=== PATIENT | female | born 1985 | race Caucasian/White ===

== ENCOUNTER → 2016-05-17 | Outpatient (REF) | payer OTHER ==
[~2016-05-17] MED LIST: OSEL75CA PO; TYLE325T5 PO; ZOFR4TAB3 PO
== END ==
LOC: M SFHCLERA 11:55
PROVIDERS: ATTEND Physician Assistant
DX: R50.9 Fever, unspecified (principal)

== ENCOUNTER 2016-05-19 17:58 | Emergency (ER) | payer OTHER ==
[~2016-05-19] VITALS: Ht 152.4 cm; Wt 63.5 kg
[2016-05-19] MEDS ORDERED: OSEL75CA PO (18:06)
[2016-05-19] MEDS ORDERED: TYLE325T5 PO (18:06)
[2016-05-19] MEDS: ONDANSETRON 4MG/2ML VIAL (J2405) IV ONE (19:39)
[2016-05-19] MEDS: NS 1,000 ML IV ONE (19:39)
[2016-05-19] MEDS: KETOROLAC 30 MG/ML VIAL (J1885) IV ONE (19:40)
[2016-05-19 20:00] LABS: BASO % 0.5 % (0.0-1.0); EOS % 0.3 % (0.0-3.0); LARGE UNSTAINED CELL # 0.1 K/mm3 (0.0-0.4); LYMPH # 1.2 K/mm3 (1.5-4.5); LYMPH % 24.6 % (24.0-44.0); MEAN CORPUSCULAR HEMOGLOBIN 31.2 pg (27.0-33.0); MEAN CORPUSCULAR HGB CONC 34.8 g/dl (32.0-36.5); MEAN CORPUSCULAR VOLUME 89.6 fl (80.0-96.0); MONO # 0.3 K/mm3 (0.0-0.8); MONO % 6.5 % (0.0-5.0); NEUTROPHILS # 3.4 K/mm3 (1.8-7.7); NEUTROPHILS % 66.2 % (36.0-66.0); PLATELET COUNT, AUTOMATED 216 k/mm3 (150-450); RED CELL DISTRIBUTION WIDTH 11.8 % (11.5-14.5); WHITE BLOOD COUNT 5.1 K/mm3 (4.0-10.0)
[2016-05-19 20:07] LABS: CONTROL LINE HCG INT CTR LINE PRESENT
[2016-05-19 20:47] LABS: ANION GAP 11 MEQ/L (8-16); BLOOD UREA NITROGEN 5 MG/DL (7-18); CARBON DIOXIDE LEVEL 25 MEQ/L (21-32); CHLORIDE LEVEL 102 MEQ/L (98-107); CREATININE FOR GFR 0.73 MG/DL (0.55-1.02); GLOMERULAR FILTRATION RATE > 60.0 (>60); GLUCOSE, FASTING 87 MG/DL (70-105); POTASSIUM SERUM 3.7 MEQ/L (3.5-5.1); SODIUM LEVEL 138 MEQ/L (136-145)
[2016-05-19] MEDS ORDERED: ZOFR4TAB3 PO (21:27)
[2016-05-19 21:58] VITALS: BP 129/82
== END 2016-05-19 21:59 | disposition home or self-care (01) ==
LOC: M ED 20:16
DX: B34.9 Viral infection, unspecified (principal); F17.210 Nicotine dependence, cigarettes, uncomplicated
CPT/HCPCS: 80048; 84443; 84703; 85025; 96361; 96374; 96375; 99284; J1885; J2405

== ENCOUNTER 2016-11-06 11:18 | Day surgery (SDC) | payer OTHER ==
[~2016-11-06] VITALS: Ht 152.4 cm; Wt 62.6 kg
[~2016-11-06 11:18] MED LIST changes: +FLUTISP; +LR 1,000 ML IV ONE; +PROV2.5T PO
[2016-11-06 11:55] LABS: CONTROL LINE UCG INT CTR LINE PRESENT
[2016-11-06] MEDS ORDERED: MIDAZOLAM INJ 2 MG/2 ML VIAL (J2250) As Ordered ONE (12:58)
[2016-11-06] MEDS ORDERED: fentaNYL 100 MCG/2 ML INJECTION (J3010) As Ordered ONE ×2 (12:58→13:59)
[2016-11-06] MEDS ORDERED: LIDOCAINE W/EPINEPHRINE 1% 20ML VIAL As Ordered ONE (13:06)
[2016-11-06] MEDS ORDERED: OXYMETAZOLINE NASAL SPRAY (AFRIN) As Ordered ONE (13:06)
[2016-11-06] MEDS ORDERED: PROPOFOL 200 MG/20 ML VIAL As Ordered ONE (13:59)
[2016-11-06] MEDS ORDERED: ROCURONIUM BROMIDE 50 MG/5 ML VIAL/SYRINGE As Ordered ONE (13:59)
[2016-11-06] MEDS ORDERED: LIDOCAINE 2% INJ 100 MG/5 ML SDV (FOR ANES.) As Ordered ONE (13:59)
[2016-11-06] MEDS ORDERED: SUCCINYLCHOLINE 100 MG/5 ML SYRINGE (J0330) As Ordered ONE (13:59)
[2016-11-06] MEDS ORDERED: ONDANSETRON 4MG/2ML VIAL (J2405) As Ordered ONE (14:00)
[2016-11-06] MEDS ORDERED: dexameTHASONE 4 MG/ML 1ML VIAL (J1100) As Ordered ONE (14:00)
[2016-11-06] MEDS ORDERED: ONDANSETRON 4 MG TAB (S0181) PO PRN (14:45)
[2016-11-06] MEDS ORDERED: LR 1,000 ML IV SCH (14:45)
[2016-11-06] MEDS ORDERED: fentaNYL 100 MCG/2 ML INJECTION (J3010) IV PRN (14:45)
[2016-11-06] MEDS ORDERED: ONDANSETRON 4MG/2ML VIAL (J2405) IV PRN (14:45)
[2016-11-06] MEDS ORDERED: PERCOCET 5MG/325MG TAB PO PRN (14:45)
[2016-11-06 15:40] VITALS: BP 125/73
--- NOTE | 2016-11-07 12:54 | RO ---
DATE OF PROCEDURE: 11/06/2016 PREOPERATIVE DIAGNOSIS: Deviated septum, chronic rhinitis. POSTOPERATIVE DIAGNOSIS: Deviated septum, chronic rhinitis. PROCEDURE: 1. Septoplasty. 2. Partial reduction inferior turbinates. SURGEON: Anthony Benitez MD PRICING INTERN: ANESTHESIA: General endotracheal. INDICATIONS: A 31-year-old with a long history of nasal obstruction. PROCEDURE: Satisfactory general endotracheal anesthesia was administered, pharyngeal pack placed. The nose was prepared for surgery by placing cotton-soaked pledgets with Afrin solution to nasal cavity bilaterally. 1% Xylocaine with 1:100,000 epinephrine was used to inject into the nasal septum and inferior turbinates. A [place] incision was made on the left side of the nose. A mucoperichondrial flap and envelope was created on the left side of the nasal septum and carried down to the junction of the bony and cartilaginous septum. This was then with an elevator, and an envelope was then created on the right side of the septum. A Deirdre scissors was used to make a cut high in the perpendicular plate in the midportion of the vomer, and a central segment of the bony septum was resected. Next, with the round knife on the [place] elevator, a strip of cartilage was resected from the floor of the nose, mobilizing the quadrilateral cartilage and creating a swinging door. Then, a central segment of cartilaginous septum was resected, preserving a 1 cm dorsal and caudal strut. Double-action rongeur was used to take down deflected portions of the perpendicular plate, as well. Finally, the maxillary crest spur was taken down after elevating mucoperiosteum off both sides of it with a chisel. A segment of the resected cartilage was morselized and placed back into the septal envelope. The incision was closed using an interrupted #5-0 chromic suture. Then, a #4-0 plain suture was placed in a [id number] fashion through the two leaves of mucoperichondrium to appose them. Next, the inferior turbinates were medially infractured. A #15 blade was used to make an incision on the anterior tip of the inferior turbinate. With a Ammon elevator, a mucoperiosteal tunnel was created on the medial side of the turbinate. Then, the microdebrider with a 2.9 mm blade was inserted into the tunnel, and the underlying turbinate bone was weakened and partially resected using the microdebrider. Then, the turbinate was laterally outfractured. The posteroinferior tip of the turbinate was then cauterized with suction cautery. When the surgery was complete, Cunningham splints were placed into the nose and sewn to the columella with a #2-0 Prolene suture. The pharyngeal pack was removed and throat was suctioned. The patient was then awakened, extubated, and sent to recovery in satisfactory condition. She will be discharged home on Percocet for pain and doxycycline 100 mg twice a day. She will be seen back in the office in three days.
== END 2016-11-06 16:09 | disposition home or self-care (01) ==
LOC: M SDC 11:18
PROVIDERS: ATTEND Specialist
DX: J34.2 Deviated nasal septum (principal); J31.0 Chronic rhinitis; F17.210 Nicotine dependence, cigarettes, uncomplicated; Z79.899 Other long term (current) drug therapy; Z91.040 Latex allergy status
CPT/HCPCS: 30520; 30801; 84703; 88302; J0330; J1100; J2250; J2405; J3010

== ENCOUNTER 2016-11-08 15:27 | Emergency (ER) | payer OTHER ==
[~2016-11-08] VITALS: Ht 152.4 cm; Wt 64.5 kg
[~2016-11-08 15:27] MED LIST changes: -LR 1,000 ML IV ONE
[2016-11-08] MEDS ORDERED: OXYCOD/APAP (15:40)
[2016-11-08] MEDS ORDERED: DOXY-278 (15:40)
[2016-11-08] MEDS ORDERED: MOTR200T44 PO (15:40)
[2016-11-08] MEDS ORDERED: ONDANSETRON 4MG/2ML VIAL (J2405) IV ONE (17:00)
[2016-11-08] MEDS ORDERED: KETOROLAC 30 MG/ML VIAL (J1885) IV ONE (17:00)
[2016-11-08] MEDS ORDERED: NS 1,000 ML IV ONE (17:00)
[2016-11-08 17:30] LABS: BASO % 0.2 % (0.0-1.0); EOS # 0.1 K/mm3 (0.0-0.50); EOS % 0.7 % (0.0-3.0); LARGE UNSTAINED CELL # 0.1 K/mm3 (0.0-0.4); LARGE UNSTAINED CELL % 0.8 % (0.0-4.0); LYMPH # 1.1 K/mm3 (1.5-4.5); LYMPH % 9.8 % (24.0-44.0); MEAN CORPUSCULAR HEMOGLOBIN 32.7 pg (27.0-33.0); MEAN CORPUSCULAR VOLUME 93.5 fl (80.0-96.0); MONO # 0.7 K/mm3 (0.0-0.8); MONO % 5.6 % (0.0-5.0); NEUTROPHILS # 9.6 K/mm3 (1.8-7.7); NEUTROPHILS % 82.8 % (36.0-66.0); PLATELET COUNT, AUTOMATED 299 k/mm3 (150-450); RED CELL DISTRIBUTION WIDTH 11.9 % (11.5-14.5); WHITE BLOOD COUNT 11.6 K/mm3 (4.0-10.0)
[2016-11-08 17:40] LABS: ANION GAP 9 MEQ/L (8-16); BLOOD UREA NITROGEN 3 MG/DL (7-18); CALCIUM LEVEL 9.1 MG/DL (8.5-10.1); CARBON DIOXIDE LEVEL 27 MEQ/L (21-32); CHLORIDE LEVEL 101 MEQ/L (98-107); CREATININE FOR GFR 0.69 MG/DL (0.55-1.02); GLOMERULAR FILTRATION RATE > 60.0 (>60); GLUCOSE, FASTING 80 MG/DL (70-105); POTASSIUM SERUM 3.9 MEQ/L (3.5-5.1); SODIUM LEVEL 137 MEQ/L (136-145)
[2016-11-08] MEDS ORDERED: ZOFR4TAB3 PO (17:52)
[2016-11-08 18:02] VITALS: BP 90/48
== END 2016-11-08 18:04 | disposition home or self-care (01) ==
LOC: M ED 15:27
DX: G89.18 Other acute postprocedural pain (principal); Z98.890 Other specified postprocedural states; F17.210 Nicotine dependence, cigarettes, uncomplicated
CPT/HCPCS: 80048; 85025; 96374; 96375; 99283; J1885; J2405

== ENCOUNTER 2016-11-12 12:40 | Emergency (ER) | payer OTHER ==
[~2016-11-12] VITALS: Ht 152.4 cm; Wt 63.6 kg
[2016-11-12 12:40] VITALS: BP 131/88
[~2016-11-12 12:40] MED LIST changes: +DOXY-278; +MOTR200T44 PO; +OXYCOD/APAP
== END 2016-11-12 13:15 | disposition left against medical advice (07) ==
LOC: M ED 12:40
DX: R51 Headache (principal); Z53.21 Procedure and treatment not carried out due to patient leaving prior to being seen by health care provider

== ENCOUNTER → 2017-07-24 | Outpatient (REF) | payer OTHER | LOC: M SFHCLERA 18:11 | DX: J02.9 Acute pharyngitis, unspecified (principal) ==

== ENCOUNTER → 2017-11-05 | Outpatient (REF) | payer OTHER ==
[2017-11-05 18:32] LABS: THYROID STIMULATING HORMONE 0.864 uIU/ML (0.358-3.740)
[2017-11-05 20:07] LABS: BASO % 0.4 % (0.0-1.0); EOS # 0.1 10^3/uL (0.0-0.50); HEMATOCRIT 46.1 % (36.0-47.0); HEMOGLOBIN 15.2 g/dl (12.0-15.5); IMMATURE GRANULOCYTE % 0.3 % (0-3.0); LYMPH # 1.8 10^3/uL (1.5-4.5); LYMPH % 25.4 % (24.0-44.0); MEAN CORPUSCULAR HEMOGLOBIN 31.1 pg (27.0-33.0); MEAN CORPUSCULAR VOLUME 94.5 fl (80.0-96.0); MONO # 0.4 10^3/uL (0.0-0.8); MONO % 5.6 % (0.0-5.0); NEUTROPHILS # 4.9 10^3/uL (1.8-7.7); NEUTROPHILS % 67.3 % (36.0-66.0); PLATELET COUNT, AUTOMATED 315 10^3/uL (150-450); RED BLOOD COUNT 4.88 10^6/uL (4.00-5.40); RED CELL DISTRIBUTION WIDTH 11.8 % (11.5-14.5); WHITE BLOOD COUNT 7.2 10^3/uL (4.0-10.0)
[2017-11-05 21:24] LABS: ERYTHROCYTE SEDIMENTATION RATE 10 mm/hr (0-20)
== END ==
LOC: M SFHCLERA 13:39
DX: L50.8 Other urticaria (principal)

== ENCOUNTER → 2018-01-18 | Outpatient (REF) | payer OTHER | LOC: M SFHCLERA 09:38 | DX: Z01.419 Encounter for gynecological examination (general) (routine) without abnormal findings (principal); Z11.51 Encounter for screening for human papillomavirus (HPV); R87.611 Atypical squamous cells cannot exclude high grade squamous intraepithelial lesion on cytologic smear of cervix (ASC-H) ==

== ENCOUNTER 2018-04-18 12:48 | Emergency (ER) | payer OTHER ==
[~2018-04-18] VITALS: Ht 152.4 cm; Wt 63.6 kg
[~2018-04-18 12:48] MED LIST changes: -DOXY-278; +DOXY-350; +ZOFR4TAB14 PO; -ZOFR4TAB3 PO
[2018-04-18 13:16] LABS: BASO % 0.4 % (0.0-1.0); EOS # 0.1 10^3/uL (0.0-0.50); EOS % 1.3 % (0.0-3.0); HEMOGLOBIN 15.2 g/dl (12.0-15.5); LYMPH # 1.8 10^3/uL (1.5-4.5); LYMPH % 31.9 % (24.0-44.0); MEAN CORPUSCULAR HEMOGLOBIN 31.5 pg (27.0-33.0); MEAN CORPUSCULAR HGB CONC 34.5 g/dl (32.0-36.5); MEAN CORPUSCULAR VOLUME 91.3 fl (80.0-96.0); MONO # 0.4 10^3/uL (0.0-0.8); MONO % 6.9 % (0.0-5.0); NEUTROPHILS # 3.3 10^3/uL (1.8-7.7); NEUTROPHILS % 59.3 % (36.0-66.0); PLATELET COUNT, AUTOMATED 297 10^3/uL (150-450); RED BLOOD COUNT 4.82 10^6/uL (4.00-5.40); WHITE BLOOD COUNT 5.5 10^3/uL (4.0-10.0)
[2018-04-18] MEDS ORDERED: NS 1,000 ML IV SCH (13:27)
[2018-04-18 13:28] LABS: INR 0.92; PARTIAL THROMBOPLASTIN TIME 28.8 SECONDS (25.4-37.6); PROTHROMBIN TIME 12.4 SECONDS (12.1-14.4)
[2018-04-18] MEDS ORDERED: ASPIRIN 325 MG TAB PO ONE (13:30)
[2018-04-18] MEDS ORDERED: METOCLOPRAMIDE INJ 10MG/2ML VIAL (J2765) IV ONE (13:30)
[2018-04-18 13:31] LABS: HCG, SERUM QUALITATIVE NEGATIVE (NEGATIVE)
[2018-04-18 13:47] LABS: ALBUMIN 4.3 GM/DL (3.2-5.2); ALT/SGPT 20 U/L (12-78); BILIRUBIN,DIRECT 0.2 MG/DL (0.0-0.2); BILIRUBIN,TOTAL 0.7 MG/DL (0.2-1.0); BLOOD UREA NITROGEN 8 MG/DL (7-18); CALCIUM LEVEL 10.5 MG/DL (8.5-10.1); CARBON DIOXIDE LEVEL 26 MEQ/L (21-32); CHLORIDE LEVEL 105 MEQ/L (98-107); CK-MB VALUE MASS < 1.0 NG/ML (<3.6); CPK CREATINE PHOSPHOKINASE 47 U/L (26-192); CREATININE FOR GFR 0.77 MG/DL (0.55-1.30); FREE T4 1.17 NG/DL (0.76-1.46); GLOMERULAR FILTRATION RATE > 60.0 (>60); GLUCOSE, FASTING 86 MG/DL (70-100); LIPASE 96 U/L (73-393); MB/CK RELATIVE INDEX 2.13 (< OR =4); SODIUM LEVEL 139 MEQ/L (136-145); TOTAL PROTEIN 8.2 GM/DL (6.4-8.2); TROPONIN I < 0.02 NG/ML (< 0.10)
[2018-04-18] MEDS ORDERED: ISOVUE-370 76% 100ML VIAL (Q9967) As Ordered ONE (13:52)
--- NOTE | 2018-04-18 14:40 | REP ---
AP PORTABLE CHEST: 04/18/2018. CLINICAL HISTORY: Pleuritic chest pain. COMPARISON: No prior study. FINDINGS: Lungs adequately inflated. There is no pleural effusion, lateral pleural thickening, infiltrate, atelectasis, or mass. Heart, mediastinal and hilar contours are normal. The aorta and airway are unremarkable. Bones intact. No free air under the diaphragm. IMPRESSION: 1. Negative portable chest. Electronically Signed by Apollo Carpenter MD 04/18/2018 07:19 P
[2018-04-18 15:06] VITALS: BP 106/55
--- NOTE | 2018-04-18 15:13 | REP ---
CT ANGIOGRAM CHEST: 04/18/2018. CLINICAL HISTORY: Pleuritic chest pain. TECHNIQUE: Bolus of 75 mL Isovue 370 with scanning through the chest with CT angiogram protocol. Both coronal and sagittal MIP and standard reformats provided. FINDINGS: The lung jc are well inflated, although there is some minor dependent atelectatic change posteriorly in both lungs. No effusion, infiltrate, linear compressive atelectatic change, or lung mass. There is a 5.5 mm noncalcified nodule just below the minor fissure in the medial segment of the right middle lobe seen on image 38 of series 402. A couple of other scattered subpleural 2 mm nodules are seen and a 4.5 mm nodule on image 37, just behind the major fissure in the superior segment of the right lower lobe. Left lung was clear. There is no pneumothorax or pneumomediastinum. The thoracic aorta shows no evidence of aneurysm or dissection. Heart is not enlarged. There is no pericardial thickening or effusion. The main, right, and left pulmonary arteries and the mediastinum are without filling defects. Lobar, segmental, and the subsegmental arteries are all without filling defects or vessel cutoff. I see no pathologic-sized mediastinal, hilar, axillary, or supraclavicular adenopathy. Bone windows show the sternum, manubrium, clavicles, AC joints, scapulae, humeral heads, ribs, and the thoracic spine without fracture, destructive lesion, or compression deformity. In the upper abdomen, that portion of liver included is normal. The spleen is not enlarged. There is no hepatic mass or biliary dilatation. No adjacent ascites. Clips from prior cholecystectomy noted. Adrenal glands are normal. Upper poles of kidneys intact. Pancreas unremarkable. No hiatal hernia. Stomach and visualized bowel loops unremarkable. IMPRESSION: 1. There is no CT evidence of pulmonary thromboembolism, pleural effusion, pneumothorax, or pneumomediastinum. 2. No aortic aneurysm or dissection. There is no widening of the mediastinum, mediastinal hematoma, adenopathy, or mass. 3. Bones without acute compression fracture or destructive lesion in the chest. This includes ribs, clavicles, and shoulders. 4. No axillary or supraclavicular mass. Upper abdomen shows prior cholecystectomy, but no acute finding. 5. With two nodules between 4 mm and 6 mm in the right lung, followup for patients at low risk of malignancy would be in 6 months. Electronically Signed by Apollo Carpenter MD 04/18/2018 07:20 P
--- NOTE | 2018-04-18 15:14 | REP ---
CT BRAIN WITHOUT CONTRAST: 04/18/2018. CLINICAL HISTORY: Headache, blurred vision, hypertension. FINDINGS: No prior study. Standard noncontrast soft tissue and bone windows are reviewed for each slice level. Lateral ventricles are midline, symmetric, and without dilatation or displacement. Third and fourth ventricles likewise unremarkable. Basal ganglia symmetric and normal. Cortical stripe is preserved. There is no vascular territory infarct, intracranial hemorrhage, mass, or mass effect. White matter tracts unremarkable. No extra-axial fluid collections. Basal cisterns intact. The brainstem and cerebellum are unremarkable. No posterior fossa hemorrhage. Visualized mastoids, sinuses, skull base, and calvarium all unremarkable. IMPRESSION: 1. Normal noncontrast CT brain. Electronically Signed by Apollo Carpenter MD 04/18/2018 07:20 P
--- NOTE | 2018-04-18 16:42 | ECGEPIP ---
Stationary ECG Study [facility] - ED Test Date: 2018-04-18 Pat Name: RHONDA OCAMPO Department: Room: - Gender: F [employer] Leader: EVY : 1985 Requested By: AZUCENA Marin Order Number: [id number] Reading MD: Iwona Hernandez Measurements Intervals [place] Rate: 81 P: 58 IL: 135 QRS: 68 QRSD: 86 T: 30 QT: 359 QTc: 418 Interpretive Statements SINUS RHYTHM NO PRIOR FOR COMPARISON Electronically Signed On 04-18-2018 16:42:47 EST by Iwona Hernandez
--- NOTE | 2018-04-26 20:07 | ED PDOC ---
Post-Departure Follow-Up dr fontenot faxed formal report of ct chest angiofor fu Shana Mcclellan MD Apr 26, 2018 20:07
== END 2018-04-18 15:07 | disposition home or self-care (01) ==
LOC: M ED 12:48
DX: R07.9 Chest pain, unspecified (principal); R91.8 Other nonspecific abnormal finding of lung field; Z87.442 Personal history of urinary calculi; Z72.0 Tobacco use; Z79.899 Other long term (current) drug therapy; Z91.040 Latex allergy status
CPT/HCPCS: 70450; 71045; 71275; 80048; 80076; 82550; 82553; 83690; 84439; 84443; 84484; 84703; 85025; 85610; 85730; 93005; 93041; 94760; 96374; 99284; J2765; Q9967

== ENCOUNTER → 2018-05-04 | Outpatient (REF) | payer OTHER ==
[2018-05-04 16:49] LABS: HCG, SERUM QUALITATIVE NEGATIVE (NEGATIVE)
== END ==
LOC: M SFHCLERA 11:07
PROVIDERS: ATTEND Family Medicine
DX: R11.0 Nausea (principal)